=== PATIENT | female | born 1945 | race Caucasian/White ===

== ENCOUNTER → 2019-03-10 | Day surgery (SDC) | payer MEDICARE, OTHER ==
[~2019-03-10] MED LIST: ASPIRIN325 MG PO; CETIRIZINE HCL10 MG PO; CO Q-1030 MG PO; FENTANYL CITRATE/PF 100MCG/2 ML INJ ONE; FLONASE; LEVSIN0.125 MG PO; MELATONIN3 MG PO; METFORMIN HCL500 MG PO; MIDAZOLAM HCL 2 MG/2 ML VIAL ONE; ONDANSETRON HCL INJ 2MG/ML 2ML 2 MG/ML VIAL ONE; OR PHACO EYE KIT ONE; PHILLIPS' COLO1 EACH PO; PREOP PHACO EYE KIT ONE; ZOFRAN8 MG PO; ZOLOFT50 MG PO
--- OUTSIDE RECORDS SUMMARY | 2019-03-10 07:55 | XMS REPORT | Clinical Summary ---
Author Author [facility] Address Unknown Phone Unavailable Care Team Providers Care Second Worker Name Role Phone Hilda Upton PCP Allergies Comments Active Allergy Reactions Severity Noted Date Diarrhea and abd. Cramps and cutaneous vacsulitis Clindamycin GI High 01/14/2019 Intolerance Seizures Codeine Hives High 10/31/2015 cough Fenofibrate Other (See High 03/05/2017 Comments) Iodine Hives High 10/31/2015 Only with pills throat swelling no to Sulfa cream Sulfa (Sulfonamide Swelling High 10/31/2015 Antibiotics) Medications End Date Status Medication Sig Dispensed Refills Start Date Active cetirizine 10 mg capsule Take by oral 0 route. Active melatonin tablet Take by oral 0 route. Active co-enzyme Q-10 30 mg Take 30 mg by 0 capsule mouth 2 (two) times a day. Active L. gasseri-B. bifidum-B Rincon' 0 longum (Truevision) 1.5 billion cell capsule Active fluticasone (FLONASE) 50 2 sprays (100 15.8 mL 0 mcg/actuation nasal spray mcg total) by 8 Each Nare route daily. Active sertraline (ZOLOFT) 100 nightly. 0 MG tablet 9 Active ondansetron (ZOFRAN) 4 MG Take 1 tablet 20 tablet 0 tablet (4 mg total) 9 by mouth every 8 (eight) hours as needed for nausea or vomiting. 01/08/2020 Active hyoscyamine (LEVBID) Take 1 tablet 60 tablet 12 0.375 mg 12 hr (0.375 mg 9 tabletIndications: total) by Epigastric pain mouth every 12 (twelve) hours as needed for cramping. 04/29/2018 sertraline (ZOLOFT) 100 Take 1 tablet 90 tablet 1 MG tabletIndications: (100 mg 8 Anxiety total) by mouth daily for 90 days. 01/08/2019 Discontinued hyoscyamine (LEVBID) Take 1 tablet 60 tablet 12 0.375 mg 12 hr (0.375 mg 8 tabletIndications: total) by Epigastric pain mouth every 12 (twelve) hours as needed for cramping. 06/13/2018 amoxicillin-pot Take 1 tablet 14 tablet 0 clavulanate (AUGMENTIN) by mouth 2 8 875-125 mg per (two) times a tabletIndications: Acute day for 7 bacterial rhinosinusitis days. 06/10/2018 methylPREDNISolone follow 21 tablet 0 (MEDROL, TIMI,) 4 mg package 8 tabletIndications: Acute directions bacterial rhinosinusitis 08/31/2018 brompheniramine-pseudoeph Take 5 mL by 400 mL 0 -DM 2-30-10 mg/5 mL mouth 4 8 syrupIndications: Upper (four) times respiratory tract a day as infection, unspecified needed for type congestion or cough for up to 10 days. 08/28/2018 nitrofurantoin, Take 1 14 capsule 0 macrocrystal-monohydrate, capsule (100 8 (MACROBID) 100 MG mg total) by capsuleIndications: Acute mouth 2 (two) UTI times a day for 7 days. 08/24/2018 fluconazole (DIFLUCAN) Take 1 tablet 3 tablet 0 150 MG tabletIndications: (150 mg 8 Candidiasis of vagina total) by mouth daily for 3 doses. 12/05/2018 ciprofloxacin HCl (CIPRO) Take 1 tablet 20 tablet 0 250 MG tablet (250 mg 9 total) by mouth 2 (two) times a day for 10 days. 01/18/2019 clindamycin (CLEOCIN HCL) Take 1 30 capsule 0 300 MG capsule (300 9 capsuleIndications: mg total) by Abscess mouth 3 (three) times a day for 10 days. Status Hospital, Clinic, or Ordered Dose Route Frequency Start End Date Other Facility Date Administered Medication Ended methylPREDNISolone 80 mg IM once 06/06/20 acetate (DEPO-MEDROL) 18 8 injection 80 mgIndications: Acute bacterial rhinosinusitis Ended triamcinolone acetonide 80 mg IM once 08/21/20 (KENALOG-40) injection 80 18 8 mgIndications: Upper respiratory tract infection, unspecified type Ended methylPREDNISolone 80 mg IM once 11/26/19 acetate (DEPO-MEDROL) 19 9 injection 80 mgIndications: Acute non-recurrent frontal sinusitis Active Problems Problem Noted Date Depression 10/31/2015 Hypertriglyceridemia 10/31/2015 Knee pain 10/31/2015 Tear of medial meniscus of knee 10/31/2015 Encounters Care Team Description Date Type Specialty Hilda Upton PA Preop examination (Primary Dx) 02/19/2019 Office Visit Family Medicine Hilda Upton PA 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 Office Visit Family Medicine Rosemary Asencio, MARIO 01/14/2019 Telephone Access Rosemary Asencio RN 01/14/2019 Nurse Triage Access Hilda Upton PA 01/14/2019 Telephone Family Medicine Hilda Upton PA Abscess (Primary Dx); Epigastric pain 01/08/2019 Office Visit Family Hilda Galeano PA Suprapubic abdominal pain (Primary Dx); Screening for breast cancer; Screening for colon cancer; Pure hypercholesterolemia; Acute non-recurrent frontal sinusitis 11/25/2018 Office Visit Family Medicine Veronique Gates MA Flu vaccine need (Primary Dx) 09/25/2018 Clinical Family Medicine Support Hilda Upton PA Hematuria, unspecified type (Primary Dx); Acute UTI; Upper respiratory tract infection, unspecified type; Candidiasis of vagina 08/21/2018 Office Visit Family Medicine Denver Latham FNP Acute bacterial rhinosinusitis (Primary Dx) 06/06/2018 Office Visit Family Medicine after 03/09/2018 Immunizations Name Dates Previously Given Next Due FLUZONE HIGH-DOSE PF 09/25/2018, 09/06/2017, 07/03/2016 Influenza, Unspecified 05/26/2013 Pneumococcal Conjugate 07/03/2016 13-Valent Family History Medical History Relation Name Comments Cancer Maternal Grandmother Heart attack Mother Heart disease Mother Relation Name Status Comments Maternal Grandmother leukemia Mother Social History Date Tobacco Use Types Packs/Day Years Used Never Smoker Smokeless Tobacco: Never Used Tobacco Cessation: Counseling Given: No Alcohol Use Drinks/Week oz/Week Comments No Sex Assigned at Date Recorded Not on file Industry Job Start Date Occupation Not on file Not on file Not on file Travel End Travel History Travel Start No recent travel history available. Last Filed Vital Signs Time Taken Vital Sign Reading 02/19/2019 9:20 AM CDT Blood Pressure 140/68 02/19/2019 9:20 AM CDT Pulse 66 02/19/2019 9:20 AM CDT Temperature 36.5 C (97.7 F) 02/19/2019 9:20 AM CDT Respiratory Rate 16 02/19/2019 9:20 AM CDT Oxygen Saturation 97% - Inhaled Oxygen - Concentration 02/19/2019 9:20 AM CDT Weight 73 kg (161 lb) 02/19/2019 9:20 AM CDT Height 162.6 cm (5' 4") 02/19/2019 9:20 AM CDT Body Mass Index 27.64 Plan of Treatment Health Maintenance Due Date Last Done Comments SHINGLES VACCINES (#1) 1995 65+ PNEUMOCOCCAL VACCINE 07/03/2017 07/03/2016 (2 of 2 - PPSV23) INFLUENZA VACCINE 03/26/2019 09/25/2018, 09/06/2017, 07/03/2016, Additional history exists COLONOSCOPY SCREENING 02/23/2020 Postponed from 1995 (Patient Refused) BREAST CANCER SCREENING 12/05/2020 12/05/2018, 08/26/2009 Procedures Comments Procedure Name Priority Date/Time Associated Diagnosis CBC WITH PLATELET AND Routine 02/20/2019 Preop examination DIFFERENTIAL 8:45 AM CDT MAMMO BREAST SCREEN Routine 12/05/2018 Screening for breast TOMOSYNTHESIS BILATERAL 10:15 AM CDT cancer URINALYSIS, AUTOMATED Routine 11/25/2018 WITH MICROSCOPY 10:42 AM CDT THYROID STIMULATING Routine 11/25/2018 Pure hypercholesterolemia HORMONE 10:42 AM CDT LIPID PANEL Routine 11/25/2018 Pure hypercholesterolemia 10:42 AM CDT HEPATIC FUNCTION PANEL Routine 11/25/2018 Pure hypercholesterolemia 10:42 AM CDT CBC WITH PLATELET AND Routine 11/25/2018 Pure hypercholesterolemia DIFFERENTIAL 10:42 AM CDT BASIC METABOLIC PANEL Routine 11/25/2018 Pure hypercholesterolemia 10:42 AM CDT POC URINALYSIS DIPSTICK Routine 11/25/2018 Suprapubic abdominal pain 10:19 AM CDT POC URINALYSIS DIPSTICK Routine 08/21/2018 Hematuria, 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 WBC 7.2 3.8 - 10.8 [facility] [place] RBC 4.51 3.80 - 5.10 [facility] [place] HGB 13.0 11.7 - 15.5 g/dL [facility] [place] HCT 39.5 35.0 - 45.0 % [facility] [place] MCV 87.6 80.0 - 100.0 fL [facility] [place] MCH 28.8 27.0 - 33.0 pg [facility] [place] MCHC 32.9 32.0 - 36.0 g/dL [facility] [place] RDW 13.9 11.0 - 15.0 % [facility] [place] Platelet count 221 140 - 400 [facility] [place] MPV 12.2 7.5 - 12.5 fL [facility] [place] Neutrophils, 3,470 1,500 - 7,800 [facility] absolute cells/uL [facility] [place] Lymphocytes, 2,714 850 - 3,900 cells/uL [facility] [place] Monocytes, 598 200 - 950 cells/uL [facility] [place] Eosinophils, 346 15 - 500 cells/uL [facility] [place] Basophils, 72 0 - 200 cells/uL [facility] [place] Neutrophils 48.2 % [facility] [place] Lymphocytes 37.7 % [facility] [place] Monocytes 8.3 % [facility] [place] Eosinophils 4.8 % [facility] [place] Basophils + RC 1.0 % [facility] [place] Specimen Blood Resulting Agency Comment Performing Organization Information: Site ID: [id number] Name: [facility] Address: [address] [place] [address] Director: Ibis Chen Performing Organization Address City/[facility]/Zipcode Phone Number [facility] [place] [address] [place], [place] [phone] * Mammo Breast Screen Tomosynthesis Bilateral (12/05/2018 10:15 AM CDT) Specimen Narrative Performed At PROCEDURE: MAMMO BREAST SCREEN TOMOSYNTHESIS BILATERAL SAMANTHA Computer aided detection was utilized for the interpretation of the digital bilateral screening mammography with tomosynthesis. COMPARISON: There is no prior studies available for comparison. DENSITY: There are scattered areas of fibroglandular density. There is no evidence of suspicious masses, architectural distortions or grouped calcifications. IMPRESSION:No mammographic evidence of malignancy. RECOMMENDATION: Comparison with physical exam and annual screening mammography. BI-RADS 1:NEGATIVE This facility is accredited by the [employer] for Mammography. A negative x-ray report should not delay biopsy if a dominant or clinically suspicious mass is present.Not all cancers are identified by x-ray. [id number] Performing Organization Address City/[facility]/Zipcode Phone Number [facility] [address] [place] [address] * Urinalysis, automated with microscopy (11/25/2018 10:42 AM CDT) Color, UA YELLOW YELLOW [facility] [place] Appearance CLEAR CLEAR [facility] [place] Specific 1.007 1.001 - 1.035 [facility] gravity, urine [facility] [place] pH, urine 7.0 5.0 - 8.0 [facility] [place] Glucose, urine NEGATIVE NEGATIVE [facility] [place] Bilirubin, UA NEGATIVE NEGATIVE [facility] [place] Ketones, UA NEGATIVE NEGATIVE [facility] [place] Occult blood, NEGATIVE NEGATIVE [facility] [place] Protein, UA NEGATIVE NEGATIVE [facility] [place] Nitrite, UA NEGATIVE NEGATIVE [facility] [place] Leukocyte TRACE (A) NEGATIVE [facility] esterase, UA [facility] [place] WBC, UA NONE SEEN < OR=5 /HPF [facility] [place] RBC, UA NONE SEEN < OR=2 /HPF [facility] [place] Squamous NONE SEEN < OR=5 /HPF [facility] epithelial [facility] cells, UA [place] Bacteria, UA NONE SEEN NONE SEEN /HPF [facility] [place] Hyaline casts, NONE SEEN NONE SEEN /LPF [facility] UA [facility] [place] Specimen Narrative Performed At FASTING:YES [facility] FASTING: YES Resulting Agency Comment Performing Organization Information: Site ID: [id number] Name: [facility] Address: [address] [place] [phone] Director: Ibis Chen Performing Organization Address City/[facility] Phone Number [facility] [address] [address] * Thyroid stimulating hormone (11/25/2018 10:42 AM CDT) Pathologist [facility] TSH 1.88 0.40 - 4.50 mIU/L [facility] [place] Specimen Blood Narrative Performed At FASTING:YES [facility] FASTING: YES Resulting Agency Comment Performing Organization Information: Site ID: [id number] Name: [facility] Address: [address] [place] [phone] Director: Ibis Chen Performing Organization Address [facility] Phone Number [facility] [address] [address] * Hepatic function panel (11/25/2018 10:42 AM CDT) Pathologist [facility] Protein 6.6 6.1 - 8.1 g/dL [facility] [place] Albumin, S 4.2 3.6 - 5.1 g/dL [facility] [place] Globulin, total 2.4 1.9 - 3.7 g/dL [facility] (calc) [facility] [place] Albumin/globuli 1.8 1.0 - 2.5 (calc) [facility] n ratio [facility] [place] Total bilirubin 0.4 0.2 - 1.2 mg/dL [facility] [place] Bilirubin 0.1 < OR=0.2 mg/dL [facility] direct [facility] [place] Bilirubin, 0.3 0.2 - 1.2 mg/dL [facility] indirect (calc) [facility] [place] Alkaline 78 33 - 130 U/L [facility] phosphatase [facility] [place] AST 17 10 - 35 U/L [facility] [place] ALT 20 6 - 29 U/L [facility] [place] Specimen Blood Narrative Performed At FASTING:YES [facility] FASTING: YES Resulting Agency Comment Performing Organization Information: Site ID: [id number] Name: [facility] Address: [address] [place] [phone] Director: Ibis Chen Performing Organization Address [facility] Phone Number [facility] [address] [address] * Lipid panel (11/25/2018 10:42 AM CDT) Cholesterol, 223 (H) <200 mg/dL [facility] total [facility] [place] HDL cholesterol 39 (L) >50 mg/dL [facility] [place] Triglycerides 445 (H) <150 mg/dL [facility] [place] LDL cholesterol Comment: mg/dL (calc) [facility] calculated LDL cholesterol not DIAG[facility] calculated. Triglyceride [place] levels greater than 400 mg/dL invalidate calculated LDL results. Reference range: <100 Desirable range <100 mg/dL for primary prevention; <70 mg/dL for patients with CHD or diabetic patients with > or=2 CHD risk factors. LDL-C is now calculated using the Enio calculation, which is a validated novel method providing better accuracy than the Friedewald equation in the estimation of LDL-C. Efren ZARCO et al. MARIELLE. 2013;310(19): 3748-5849 (http://education.P[employer]ers/faq/FCN889) Cholesterol/HDL 5.7 (H) <5.0 (calc) [facility] ratio [facility] [place] Non-HDL 184 (H) <130 mg/dL (calc) [facility] cholesterol Comment: DIAGNOSTICS For patients with diabetes [place] plus 1 major ASCVD risk factor, treating to a non-HDL-C goal of <100 mg/dL (LDL-C of <70 mg/dL) is considered a therapeutic option. Specimen Blood Narrative Performed At FASTING:YES [facility] FASTING: YES Resulting Agency Comment Performing Organization Information: Site ID: [id number] Name: [facility] Address: [address] [place] [phone] Director: Ibis Chen Performing Organization Address City/State/Zipcode Phone Number [facility] [place] [phone] * Basic metabolic panel (11/25/2018 10:42 AM CDT) Glucose 89 65 - 99 mg/dL [facility] Comment: DI[facility]NOSTICS Fasting [place] reference interval BUN, whole 15 7 - 25 mg/dL [facility] blood [facility] [place] Creatinine 0.76 0.60 - 0.93 mg/dL [facility] Comment: DI[facility]ST[facility] For patients >49 years of age, [place] the reference limit for Creatinine is approximately 13% higher for people identified as -[place]. EGFR Non-Afr. 78 > OR=60 [facility] [place] mL/min/1.73m2 [facility] [place] EGFR 90 > OR=60 [facility] [place] mL/min/1.73m2 [facility] [place] BUN/creatinine NOT APPLICABLE 6 - 22 (calc) [facility] ratio [facility] [place] Sodium 141 135 - 146 mmol/L [facility] [place] Potassium 4.2 3.5 - 5.3 mmol/L [facility] [place] Chloride 102 98 - 110 mmol/L [facility] [place] CO2 30 20 - 32 mmol/L [facility] [place] Calcium 9.9 8.6 - 10.4 mg/dL [facility] [place] Specimen Blood Narrative Performed At FASTING:YES [facility] FASTING: YES Resulting Agency Comment Performing Organization Information: Site ID: [id number] Name: [facility] Address: [address] [place] [phone] Director: Ibis Chen Performing Organization Address City/State/Zipcode Phone Number [facility] [place] [address] [place] [address] * POC urinalysis dipstick (11/25/2018 10:19 AM CDT) Only the most recent of 2 results within the time period is included. Color urine, Yellow POC Clarity urine, Clear POC Glucose urine, Negative Negative POC Bilirubin Negative Negative urine, POC Ketones urine, Negative Negative POC Specific 1.010 1.005 - 1.030 gravity urine, POC Blood urine, Negative Negative POC pH urine, POC 7.0 5.0, 5.5, 6.0, 6.5, 7.0, 7.5, 8.0, 8.5 Protein urine, Negative Negative POC Urobilinogen <2.0 <2.0 urine, POC Nitrite urine, Negative Negative POC Leukocyte Small (A) Negative esterase urine, POC Specimen Urine after 03/09/2018 Insurance Type Payer Benefit Subscriber ID Effective Phone Address Plan / Dates Group Medicare MEDICARE MEDICARE xxxxxxxxxxx 2010- KRAFT, PART A AND Present [place] B Commercial BANKERS LIFE AND CASUALTY BANKERS xxxxxxxxx 2015-P LIFE AND resent CASUALTY Advance Directives Patient has advance care planning documents on file. For more information, javi e contact: Andrea Walsh[address] [place] [address]
[2019-03-10 11:45] VITALS: BP 123/70
--- NOTE | 2019-03-10 22:12 | Operative Report ---
DATE OF PROCEDURE: 03/10/2019 SURGEON: Ricky Rinaldi MD PREOPERATIVE DIAGNOSES: 1. Visually significant cataract to the left eye. 2. Poor dilation left eye. POSTOPERATIVE DIAGNOSES: 1. Visually significant cataract to the left eye. 2. Poor dilation left eye. PROCEDURE: Complicated phacoemulsification with posterior chamber intraocular lens. ANESTHESIA: MAC. COMPLICATIONS: None. LENS: Jose [id number] 24.5 diopter lens. DESCRIPTION OF PROCEDURE: The patient was taken to the operating room, where the patient had tetracaine 0.5% drops placed in the eye. The patient's eye was then prepped and draped in the usual sterile ophthalmic way. A lid speculum was placed in the left eye. A sideport incision was made. A 0.2 mL of 1% lidocaine preservative free was injected into the anterior chamber. Viscoelastic was placed in the anterior chamber and a keratome was used to make a temporal clear corneal incision. A secondary poor dilation of Malyugin ring was used to dilate the pupil. It was centered well. A cystotome and Utrata forceps were used to create an anterior capsulorrhexis without any complication. Hydrodissection and hydrodelineation were then performed. A good fluid wave was noted. A phacoemulsification probe was placed in the eye and the dense nucleus was phacoemulsified using the divide and conquer technique. Irrigation aspiration handpiece was then used to removed any residual cortical material. Viscoelastic was placed in the capsular bag and an Jose [id number] 24.5 diopter lens was placed in the bag without any complication. The irrigation aspiration handpiece was used to remove any residual viscoelastic material from within the eye. The Malyugin ring was then removed. Miostat was injected into the anterior chamber and the wound was checked to make sure there was no evidence of leakage. Two drops of Vigamox were placed in the eye. Once this done, the patient had Maxitrol ointment and a patch and Fabian shield in the eye. The patient tolerated the procedure well and was taken to the recovery room in good condition. The patient will be seen in my office tomorrow. Ricky Rinaldi MD SES/MODL /[id number]
== END | disposition home or self-care (01) ==
LOC: OR 07:51 → EDBD 12:00
PROVIDERS: ATTEND Ophthalmology
DX: H25.12 Age-related nuclear cataract, left eye (principal); H57.09 Other anomalies of pupillary function; M19.90 Unspecified osteoarthritis, unspecified site; M06.9 Rheumatoid arthritis, unspecified; E78.5 Hyperlipidemia, unspecified; K58.9 Irritable bowel syndrome, unspecified; F32.9 Major depressive disorder, single episode, unspecified; F41.9 Anxiety disorder, unspecified; Z88.2 Allergy status to sulfonamides; Z88.8 Allergy status to other drugs, medicaments and biological substances; Z88.6 Allergy status to analgesic agent; Z88.1 Allergy status to other antibiotic agents; Z91.041 Radiographic dye allergy status; Z85.820 Personal history of malignant melanoma of skin
CPT/HCPCS: 66982; J2250; J2405; J3010; V2632

== ENCOUNTER → 2019-03-31 | Day surgery (SDC) | payer MEDICARE, OTHER ==
[2019-03-17 14:13] LABS: BASOPHILS # (AUTO) 0.1 (0.0-0.1); BASOPHILS % 0.8 % (0.0-1.0); EOSINOPHILS # (AUTO) 0.4 (0.0-0.4); EOSINOPHILS % 4.1 % (0.0-6.0); HEMATOCRIT 43.8 % (34.2-44.1); HEMOGLOBIN 14.7 g/dL (12.0-16.0); LYMPHOCYTES # (AUTO) 3.4 (1.0-3.2); LYMPHOCYTES % 35.4 % (18.0-39.1); MEAN CORPUSCULAR HEMOGLOBIN 29.8 pg (28-32); MEAN CORPUSCULAR HGB CONC 33.6 g/dL (31-35); MEAN CORPUSCULAR VOLUME 88.7 fL (81-99); MONOCYTES # (AUTO) 0.8 (0.2-0.8); MONOCYTES % 8.5 % (4.4-11.3); NEUTROPHILS # (AUTO) 4.8 (2.1-6.9); NEUTROPHILS % 50.6 % (38.7-80.0); PLATELET COUNT 197 x10e3/uL (140-360); RED BLOOD COUNT 4.94 x10e6/uL (3.6-5.1); RED CELL DISTRIBUTION WIDTH 13.5 % (11.7-14.4)
[~2019-03-31] MED LIST changes: -ONDANSETRON HCL INJ 2MG/ML 2ML 2 MG/ML VIAL ONE
--- OUTSIDE RECORDS SUMMARY | 2019-03-31 10:01 | XMS REPORT | Clinical Summary ---
Author Author [facility] Address Unknown Phone Unavailable Care Team Providers Care Squirt Machine Operator Name Role Phone Hilda Upton PCP Allergies [...] Active L. gasseri-B. bifidum-B Rincon' 0 longum (IDbyME) 1.5 billion cell capsule Active fluticasone (FLONASE) 50 2 sprays (100 15.8 mL 0 mcg/actuation nasal spray mcg total) by 8 Each Nare route daily. Active ondansetron (ZOFRAN) 4 MG Take 1 tablet 20 tablet 0 tablet (4 mg total) 9 by mouth every 8 (eight) hours as needed for nausea or vomiting. 01/08/2020 Active hyoscyamine (LEVBID) Take 1 tablet 60 tablet 12 0.375 mg 12 hr (0.375 mg 9 tabletIndications: total) by Epigastric pain mouth every 12 (twelve) hours as needed for cramping. Active sertraline (ZOLOFT) 100 TAKE 1 TABLET 90 tablet 1 MG tabletIndications: BY MOUTH ONCE 9 Anxiety DAILY Active moxifloxacin (VIGAMOX) 1 drop 3 0 0.5 % ophthalmic solution (three) times a day. 04/03/2019 Active meclizine (ANTIVERT) 25 Take 1 tablet 30 tablet 1 mg tablet (25 mg total) 9 by mouth 3 (three) times a day as needed for dizziness for up to 10 days. Active ondansetron (ZOFRAN) 4 MG Take 1 tablet 20 tablet 0 tablet (4 mg total) 9 by mouth every 8 (eight) hours as needed for nausea or vomiting. 03/19/2019 Discontinued sertraline (ZOLOFT) 100 Take 1 tablet 90 [...] total) by mouth daily for 3 doses. 03/24/2019 Discontinued sertraline (ZOLOFT) 100 nightly. 0 MG tablet 9 12/05/2018 ciprofloxacin HCl (CIPRO) Take 1 tablet [...] injection 80 mgIndications: Acute non-recurrent frontal sinusitis Ended methylPREDNISolone 80 mg IM once 03/24/20 acetate (DEPO-MEDROL) 19 9 injection 80 mgIndications: Sore throat Active Problems Problem Noted Date Depression 10/31/2015 Hypertriglyceridemia 10/31/2015 Knee pain 10/31/2015 Tear of medial meniscus of knee 10/31/2015 Encounters Care Team Description Date Type Specialty Hilda Upton PA Sore throat (Primary Dx); Vertigo 03/24/2019 Office Visit Family Rosemary Sanchez, MARIO 03/24/2019 Telephone Access Rosemary Asencio RN 03/24/2019 Nurse Triage Access Hilda Upton PA Anxiety 03/19/2019 Refill Family Hilda Galaeno PA Preop examination (Primary Dx) 02/19/2019 Office Visit Hilda Angel PA 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 Office Visit Family Rosemary Sanchez, RN 01/14/2019 Telephone Access Rosemary Asencio RN 01/14/2019 Nurse Triage Access Hilda Upton PA 01/14/2019 Telephone Family Medicine Hilda Upton PA Abscess (Primary Dx); Epigastric pain 01/08/2019 Office Visit Family Medicine Hilda Upton PA Suprapubic abdominal pain (Primary Dx); Screening for breast cancer; Screening for colon cancer; Pure hypercholesterolemia; Acute non-recurrent frontal sinusitis 11/25/2018 Office Visit Family Medicine Veronique Gates MA Flu vaccine need (Primary Dx) 09/25/2018 Clinical Family [facility] Support Hilda Upton PA Hematuria, unspecified type (Primary Dx); Acute UTI; Upper respiratory tract infection, unspecified type; Candidiasis of vagina 08/21/2018 Office Visit Family Medicine Denver Latham FNP Acute bacterial rhinosinusitis (Primary Dx) 06/06/2018 Office Visit Family Medicine after 03/30/2018 Immunizations Name Dates Previously Given Next Due [...] 140/68 02/19/2019 9:20 AM CDT Pulse 66 03/24/2019 1:09 PM CDT Temperature 36.8 C (98.3 F) 02/19/2019 9:20 AM CDT Respiratory Rate 16 03/24/2019 1:09 PM CDT Oxygen Saturation 98% - Inhaled Oxygen - Concentration 03/24/2019 1:09 PM CDT Weight 73.5 kg (162 lb) 03/24/2019 1:09 PM CDT Height 162.6 cm (5' 4") 03/24/2019 1:09 PM CDT Body Mass Index 27.81 Plan of Treatment Health Maintenance Due Date Last Done Comments SHINGLES VACCINES (#1) 1995 65+ PNEUMOCOCCAL VACCINE 07/03/2017 07/03/2016 (2 of 2 - PPSV23) INFLUENZA VACCINE 03/26/2019 09/25/2018, 09/06/2017, 07/03/2016, Additional history exists COLONOSCOPY SCREENING 02/23/2020 Postponed from 1995 (Patient Refused) BREAST CANCER SCREENING 12/05/2020 12/05/2018, 08/26/2009 Procedures Comments Procedure Name Priority Date/Time Associated Diagnosis POCT RAPID STREP A Routine 03/24/2019 Sore throat 1:39 PM CDT CBC WITH PLATELET AND Routine 02/20/2019 Preop [...] DIPSTICK Routine 08/21/2018 Hematuria, unspecified 10:54 AM RN ADVANCED type after 03/30/2018 Results * POC rapid strep A (03/24/2019 1:39 PM CDT) Pathologist [facility] Rapid strep A Negative Negative antigen result Specimen Swab * CBC with platelet and differential (02/20/2019 8:45 AM CDT) Only the most recent of 2 results within the time period is included. [facility] WBC 7.2 3.8 - 10.8 [facility] RBC 4.51 3.80 - 5.10 [facility] Million[facility] HGB 13.0 11.7 - 15.5 g/dL [email or web address] HCT 39.5 35.0 - 45.0 % [email or web address] MCV 87.6 80.0 - 100.0 fL [email or web address] MCH 28.8 27.0 - 33.0 pg [email or web address] MCHC 32.9 32.0 - 36.0 g/dL [email or web address] RDW 13.9 11.0 - 15.0 % [email or web address] Platelet count 221 140 - 400 [facility] MPV 12.2 7.5 - 12.5 fL [email or web address] Neutrophils, 3,470 1,500 - 7,800 [facility] absolute cells/uL [facility] Lymphocytes, 2,714 850 - 3,900 cells/uL [facility] absolute [facility] Monocytes, 598 200 - 950 cells/uL [facility] Eosinophils, 346 15 - 500 cells/uL [facility] Basophils, 72 0 - 200 cells/uL [facility] absolute [facility] Neutrophils 48.2 % [email or web address] Lymphocytes 37.7 % [email or web address] Monocytes 8.3 % [email or web address] Eosinophils 4.8 % [email or web address] Basophils + RC 1.0 % [email or web address] Specimen Blood Resulting Agency Comment Performing Organization Information: Site ID: [id number] Name: [facility] Address: [address] [place] [phone] Director: Ibis Chen Performing Organization Address City/State/Zipcode Phone Number [facility] [place] [phone] * Mammo Breast Screen Tomosynthesis Bilateral (12/05/2018 10:15 AM CDT) Specimen Narrative Performed At PROCEDURE: MAMMO BREAST SCREEN TOMOSYNTHESIS BILATERAL HM [facility] Computer aided detection was utilized for the [...] 1:NEGATIVE This facility is accredited by the [employer] for Mammography. A negative x-ray report should not delay biopsy if a dominant or clinically suspicious mass is present.Not all cancers are identified by x-ray. [id number] Performing Organization Address City/State/Zipcode Phone Number [facility] [address] [place] [address] * Urinalysis, automated with microscopy (11/25/2018 10:42 AM CDT) Color, UA YELLOW YELLOW [facility] Appearance CLEAR CLEAR [facility] Specific 1.007 1.001 - 1.035 [facility] gravity, urine [facility]AGNOSTICS [facility] pH, urine 7.0 5.0 - 8.0 [facility] Glucose, urine NEGATIVE NEGATIVE [facility] Bilirubin, UA NEGATIVE NEGATIVE [facility] Ketones, UA NEGATIVE NEGATIVE [facility] Occult blood, NEGATIVE NEGATIVE [facility] urine [facility] Protein, UA NEGATIVE NEGATIVE [facility] Nitrite, UA NEGATIVE NEGATIVE [facility] Leukocyte TRACE (A) NEGATIVE [facility] esterase, UA [facility] WBC, UA NONE SEEN < OR=5 /HPF [facility] RBC, UA NONE SEEN < OR=2 /HPF [facility] Squamous NONE SEEN < OR=5 /HPF [facility] epithelial DIAGNOSTICS cells, UA [facility] Bacteria, UA NONE SEEN NONE SEEN /HPF [facility] Hyaline casts, NONE SEEN NONE SEEN /LPF [facility] UA [facility] Specimen Narrative Performed At FASTING:YES [facility] FASTING: YES Resulting Agency Comment Performing Organization Information: Site ID: [id number] Name: [facility] Address: [address] [place] [phone] Director: Ibis Chen Performing Organization Address City/State/Zipcode Phone Number [facility] [place] [phone] * Thyroid stimulating hormone (11/25/2018 10:42 AM CDT) TSH 1.88 0.40 - 4.50 mIU/L [email or web address] Specimen Blood Narrative Performed At FASTING:YES [facility] FASTING: YES Resulting Agency Comment Performing Organization Information: Site ID: [id number] Name: [facility] Address: [address] [place] [phone] Director: Ibis Chen Performing Organization Address [facility] Phone Number [facility] [place] [phone] * Hepatic function panel (11/25/2018 10:42 AM CDT) Pathologist [facility] Protein 6.6 6.1 - 8.1 g/dL [facility] Albumin, S 4.2 3.6 - 5.1 g/dL [facility] Globulin, total 2.4 1.9 - 3.7 g/dL [facility] (calc) [facility] Albumin/globuli 1.8 1.0 - 2.5 (calc) [facility] n ratio [facility] Total bilirubin 0.4 0.2 - 1.2 mg/dL [facility] Bilirubin 0.1 < OR=0.2 mg/dL [facility] direct [facility] Bilirubin, 0.3 0.2 - 1.2 mg/dL [facility] indirect (calc) [facility] Alkaline 78 33 - 130 U/L [facility] phosphatase [facility] AST 17 10 - 35 U/L [facility] ALT 20 6 - 29 U/L [facility] Specimen Blood Narrative Performed At FASTING:YES [facility] FASTING: YES Resulting Agency Comment Performing Organization Information: Site ID: [id number] Name: [facility] Address: [address] [place] [phone] Director: Ibis Chen Performing Organization Address [facility] Phone Number [facility] [address] [address] * Lipid panel (11/25/2018 10:42 AM CDT) Pathologist [facility] Cholesterol, 223 (H) <200 mg/dL [facility] total [facility]AG[facility] HDL cholesterol 39 (L) >50 mg/dL [facility] Triglycerides 445 (H) <150 mg/dL [facility] LDL cholesterol Comment: mg/dL (calc) [facility] calculated LDL cholesterol not DIAGNOSTICS calculated. Triglyceride [facility] levels greater than 400 mg/dL invalidate calculated LDL results. Reference range: <100 Desirable range <100 mg/dL for primary prevention; <70 mg/dL for patients with CHD or diabetic patients with > or=2 CHD risk factors. LDL-C is now calculated using the Efren-Brennan calculation, which is a validated novel method providing better accuracy than the Friedewald equation in the estimation of LDL-C. Efren SS et al. MARIELLE. 2013;310(19): 5921-1746 (http://education.[employer]/faq/PQU965) Cholesterol/HDL 5.7 (H) <5.0 (calc) [facility] ratio [facility] Non-HDL 184 (H) <130 mg/dL (calc) [facility] cholesterol Comment: DIAGNOSTICS For patients with diabetes [facility] plus 1 major ASCVD risk factor, treating to a non-HDL-C goal of <100 mg/dL (LDL-C of <70 mg/dL) is considered a therapeutic option. Specimen Blood Narrative Performed At FASTING:YES [facility] FASTING: YES Resulting Agency Comment Performing Organization Information: Site ID: [id number] Name: [facility] Address: [address] [place] [phone] Director: Ibis Chen Performing Organization Address City/State/Zipcode Phone Number [email or web address] [address] [address] * Basic metabolic panel (11/25/2018 10:42 AM CDT) Glucose 89 65 - 99 mg/dL [facility] Comment: DIAGNOSTICS Fasting [facility] reference interval BUN, whole 15 7 - 25 mg/dL [facility] blood [facility]AGNOSTICS [facility] Creatinine 0.76 0.60 - 0.93 mg/dL [facility] Comment: DIAGNOSTICS For patients >49 years of age, [facility] the reference limit for Creatinine is approximately 13% higher for people identified as -Canadian. EGFR Non-Afr. 78 > OR=60 [facility] Canadian mL/min/1.73m2 [facility] EGFR 90 > OR=60 [facility] Canadian mL/min/1.73m2 [facility] BUN/creatinine NOT APPLICABLE 6 - 22 (calc) [facility] ratio [facility]AGNO[facility] Sodium 141 135 - 146 mmol/L [facility] Potassium 4.2 3.5 - 5.3 mmol/L [facility] Chloride 102 98 - 110 mmol/L [facility] CO2 30 20 - 32 mmol/L [facility] Calcium 9.9 8.6 - 10.4 mg/dL [facility] Specimen Blood Narrative Performed At FASTING:YES [facility] FASTING: YES Resulting Agency Comment Performing Organization Information: Site ID: [id number] Name: [facility] Address: [address] [place] [phone] Director: Ibis Chen Performing Organization Address City/State/Zipcode Phone Number [facility] [address] [place], [place] [phone] * POC urinalysis dipstick (11/25/2018 10:19 AM [...] Negative esterase urine, POC Specimen Urine after 03/30/2018 Insurance Type Payer Benefit Subscriber ID Effective Phone Address Plan / Dates Group Medicare MEDICARE MEDICARE xxxxxxxxxxx 2010- [facility], PART A AND Present [place] [employer] LIFE AND CASUALTY BANKERS xxxxxxxxx 2015-P LIFE AND resent CASUALTY Advance Directives Patient has advance care planning documents on file. For more information, javi franklin contact: Andrea Roldan [address] [place] [address]
[2019-03-31 12:50] VITALS: BP 126/69
--- NOTE | 2019-04-01 00:46 | Operative Report ---
DATE OF PROCEDURE: 03/31/2019 SURGEON: Ricky Rinaldi MD PREOPERATIVE DIAGNOSES: 1. Visually significant cataract of the right eye. 2. Poor dilation, right eye. POSTOPERATIVE DIAGNOSES: 1. Visually significant cataract of the right eye. 2. Poor dilation, right eye. PROCEDURE: Complicated phacoemulsification with posterior chamber intraocular lens. ANESTHESIA: MAC. COMPLICATIONS: None. LENS: Jose [id number] 24.5 diopter lens. DESCRIPTION OF PROCEDURE: The patient was taken to the operating room. She had tetracaine 0.5% drops placed in the right eye. The patient's eye was then prepped and draped in the usual sterile ophthalmic way. A lid speculum was placed in the eye and a sideport incision was made. A 0.2 mL of 1% lidocaine preservative free was injected into the anterior chamber. Viscoelastic was placed in the anterior chamber and a keratome was used to make a temporal clear corneal incision. A Malyugin ring was used to dilate the pupil secondary to poor dilation. Once this was done, a cystotome and Utrata forceps were used to create an anterior capsulorrhexis without any complications. Hydrodissection and hydrodelineation were then performed and a good fluid wave was noted. Phacoemulsification probe was placed in the eye and the nucleus was phacoemulsified using the divide and conquer technique. Irrigation/aspiration handpiece was then used to remove any residual cortical material. Viscoelastic was placed in the capsular bag and an Jose [id number] lens placed in the bag without any complications. Irrigation/aspiration handpiece was used to remove any residual viscoelastic material from within the eye. Miostat was injected into the anterior chamber and the wound was checked to make sure there was no evidence of leakage. Prior to the Miostat, the Malyugin ring was then removed. Two drops of Vigamox were placed in the eye along with Maxitrol ointment, a patch and Fabian shield. The patient tolerated the procedure well and was taken to the recovery room in good condition. The patient will be seen in my office tomorrow. Ricky Rinaldi MD SES/MODL /[id number]
== END | disposition home or self-care (01) ==
LOC: OR 09:45
PROVIDERS: ATTEND Ophthalmology
DX: H25.11 Age-related nuclear cataract, right eye (principal); H57.09 Other anomalies of pupillary function; K58.9 Irritable bowel syndrome, unspecified; F32.9 Major depressive disorder, single episode, unspecified; F41.9 Anxiety disorder, unspecified; Z88.6 Allergy status to analgesic agent; Z88.1 Allergy status to other antibiotic agents; Z88.2 Allergy status to sulfonamides; Z88.8 Allergy status to other drugs, medicaments and biological substances; Z01.812 Encounter for preprocedural laboratory examination; Z79.82 Long term (current) use of aspirin
CPT/HCPCS: 36415; 66982; 85025; J2250; J3010; V2632